=== PATIENT | female | born 1970 | race Two or more races ===

== ENCOUNTER 2017-02-03 09:26 | Emergency (ER) | payer MEDICARE ==
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
[2017-02-03] MEDS ORDERED: TRAMADOL HCL 50 MG TABLET PO ONE (11:05)
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
[2017-02-03] MEDS ORDERED: OXYCODONE-ACETAMINOPHEN 5-325 MG TABLET PO ONE (11:17)
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
[2017-02-03 11:50] VITALS: BP 184/87
== END 2017-02-03 11:40 | disposition home or self-care (01) ==
LOC: ER 09:26
DX: S00.10XA Contusion of unspecified eyelid and periocular area, initial encounter (principal); S49.91XA Unspecified injury of right shoulder and upper arm, initial encounter; S49.92XA Unspecified injury of left shoulder and upper arm, initial encounter; M25.511 Pain in right shoulder; R51 Headache; Y04.2XXA Assault by strike against or bumped into by another person, initial encounter; Y92.009 Unspecified place in unspecified non-institutional (private) residence as the place of occurrence of the external cause; F17.200 Nicotine dependence, unspecified, uncomplicated; Z88.1 Allergy status to other antibiotic agents
CPT/HCPCS: 99284; 73090; 73130; 73030; 73110; 70486; A9270